=== PATIENT | female | born 1990 | race Caucasian/White ===

== ENCOUNTER 2021-05-27 12:31 | Emergency (ER) | payer SELFPAY ==
[2021-05-27 12:52] VITALS: BP 161/91; PULSE 76; RESP 18; TEMP 37.1; O2SAT 99; BMI 52.7
--- NOTE | 2021-05-27 12:59 | ED_ITS ---
HPI - Fall General: Chief Complaint: Fall Stated Complaint: R should injury Time Seen by Provider: 05/27/21 12:58 History of Present Illness: Patient is a 30-year-old female comes to the ED with right upper extremity injury. Patient says she fell in her apartment accidentally about 3 days ago. She landed on her right arm. Denies any head trauma or loss of consciousness. She is currently complaining of right shoulder pain and right wrist pain. Associated symptoms-after fall: Denies abdominal pain, chest pain, headache(s), hematuria or neck pain Review of Systems Const: Denies: fever(s), chills or fatigue Eyes: Denies: change in vision or eye discomfort ENMT: Denies: throat pain, odynophagia, nasal discharge or nasal congestion Card: Denies: chest pain, palpitations, edema, swelling of feet/ankles, dyspnea on exertion or orthopnea Resp: Denies: dyspnea, productive cough or non-productive cough GI: Denies: abdominal pain, nausea, vomiting, diarrhea, constipation or hematochezia : Denies: flank pain, dysuria or hematuria Musc: Reports: extremity pain (right wrist and right shoulder); Denies: neck pain, back pain or extremity swelling Skin/Breast: Denies: rash or new lesions Neuro: Denies: headache(s), numbness in extremities or weakness in extremities [facility] ED PFSH: Medical History Psychiatric care Surgical History No pertinent past surgical history Social History Smoking and tobacco status: current every day smoker cigarettes Packs smoked per day: 0.15 Years cigarettes smoked: 1 Quit status (tobacco): considering quitting Second hand smoke exposure: Yes Physical Exam Const: COMMON NORMALS: no acute distress, patient oriented x3, healthy appearing and alert GENERAL APPEARANCE: cooperative and comfortable HENMT: COMMON NORMALS: normocephalic HEAD & SCALP: normocephalic MOUTH: Normal oral and palatal mucosa present THROAT: posterior oropharynx normal and uvula midline Neck/C-Spine: COMMON NORMALS: supple GENERAL: Yes normal visual inspection Resp: COMMON NORMALS: normal respiratory effort, No retractions, No use of accessory muscles and clear to auscultation bilaterally AUSCULTATION: clear to auscultation bilaterally Cardio: COMMON NORMALS: regular rate, regular rhythm, S1 normal heart sound present, S2 normal heart sound present, No gallops present (Cardio), No clicks present (Cardio), No murmurs present (Cardio) and Peripheral pulses 2+ througho ut RATE: regular rate RHYTHM: regular rhythm HEART SOUNDS: S1 normal heart sound present and S2 normal heart sound present PERIPHERAL PULSES: Peripheral pulses 2+ throughout GI: COMMON NORMALS: Normal to inspection, nondistended, normoactive bowel sounds present, Soft to palpation, non-tender and no masses PALPATION: Yes Soft to palpation : COMMON NORMALS: Yes no CVA tenderness BLADDER/KIDNEY EXAM: Yes no CVA tenderness Back/Pelvis: COMMON NORMALS: no CVA tenderness Extremity: NARRATIVE EXTREMITY EXAM: Palpable tenderness to the right AC joint region of shoulder. Neurovascular intact distally no other acute findings. Right shoulder range of motion limited due to pain. RIGHT UPPER EXTREMITY: Yes wrist Right wrist: Yes inspection (Normal, no swelling or deformity), Yes palpation (Nontender), Yes ROM (Full range of motion) and Yes neurovascular exam (Intact) Neuro: COMMON NORMALS: patient oriented x3 and moves all extremities SENSORIUM/ORIENTATION: Yes alert Skin: GENERAL SKIN EXAM: dry skin Course Vital Signs: Vital signs: Vital Signs Temperature 98.7 F 05/27/21 12:52 Pulse Rate 76 05/27/21 12:52 Respiratory Rate 18 05/27/21 12:52 Blood Pressure 161/91 05/27/21 12:52 Pulse Oximetry 99 05/27/21 12:52 MDM - Fall Medical Decision Making Patient is a 30-year-old female comes to the ED with right shoulder and right wrist injury from fall. Patient has some right shoulder AC joint tenderness but the rest of exam findings are unremarkable. She is neurovascular intact. X- rays of right shoulder and right wrist show no acute findings. Patient diagnosed with pain in right shoulder was discharged home in a sling. She was told to follow-up with PCP in 5 to 7 days for reevaluation. She was instructed on only wearing the sling for couple days and to remove her right arm from sling to do range of motion exercises multiple times a day. Patient was discharged she understood and agreed with plan. Lab Data Radiology Impressions Shoulder X-Ray 05/27/21 13:07 IMPRESSION: No acute findings. Wrist X-Ray 05/27/21 13:07 IMPRESSION: No acute findings. Discharge Plan Discharge Patient Disposition: Home Clinical Impression: Pain in right shoulder Qualifiers: Chronicity: acute Qualified Code(s): M25.511 - Pain in right shoulder Condition: Stable Prescriptions: New Celebrex 100 mg capsule 100 mg PO BID PRN (Reason: pain) Qty: 20 0RF No Action trazodone 50 mg tablet 100 mg PO .HS PRN (Reason: insomnia) Qty: 60 1RF fluoxetine [Prozac] 20 mg capsule 20 mg PO DAILY Qty: 30 2RF Discharge Orders: Discharge ED (Routine); Ordered 05/27/21 Ordered By: Jun Ames Discharge Diet: Regular Discharge Activity: Increase activity as tolerated Patient Instructions: Shoulder Sprain (ED), Shoulder Pain (ED) Activity Restrictions/Additional Instructions: Follow-up with medical provider as directed. Wear shoulder sling for the next 2 to 3 days to allow for healing. At least 4 times a day take right arm out of sling and do some range of motion exercises to prevent frozen shoulder. take medications as prescribed. Apply cold pack on right shoulder to help with symptoms as well. Return to the ER or your medical provider if condition worsens. Please read and understand discharge instructions. Thank you for choosing [facility] for your healthcare needs today. Please realize this is an emergency room and that we are providing you with a medical screening exam and this may not be complete and all inclusive of all the testing and or work up that you may need to determine your ailment or severity of your illness. It is very important that you follow up as instructed or that you return to the Emergency Department should you have concerns or if your condition changes or worsens in any way. Stand Alone Forms: Work/School Release Coding Level of Care Code ED Medical Photographer for Marcelo Fwmoon Exam Comprehensive
--- NOTE | 2021-05-27 13:07 | XRR_ITS ---
PROCEDURE INFORMATION: Exam: XR Right Shoulder Exam date and time: 05/27/2021 1:07 PM Age: 30 years old Clinical indication: Pain and injury or trauma; Fall; Blunt trauma (contusions or hematomas); Shoulder; Right; Injury date: 05/27/21; Additional info: Fall injury with shoulder pain TECHNIQUE: Imaging protocol: XR Right shoulder. Views: 2 or more views. COMPARISON: No relevant prior studies available. FINDINGS: Bones/joints: Osseous structures are intact. Negative for fracture or dislocation. Soft tissues: Normal. XR/XR shoulder RT min 2V* [id number] IMPRESSION: No acute findings.
--- NOTE | 2021-05-27 13:07 | XRR_ITS ---
PROCEDURE INFORMATION: Exam: XR Right Wrist Exam date and time: 05/27/2021 1:07 PM Age: 30 years old Clinical indication: Pain and injury or trauma; Fall; Blunt trauma (contusions or hematomas); Wrist; Right; Injury date: 05/27/21; Additional info: Fall injury with wrist pain TECHNIQUE: Imaging protocol: XR Right wrist. Views: 3 or more views. COMPARISON: No relevant prior studies available. FINDINGS: Bones/joints: Osseous structures are intact. Negative for fracture. Joint spaces are preserved. Soft tissues: Normal. XR/XR wrist RT min 3V* [id number] IMPRESSION: No acute findings.
[2021-05-27] MEDS: HYDROcodone-acetaminophen 5-325 mg Tablet 1 TAB PO (13:12)
== END 2021-05-27 15:03 | disposition home or self-care (01) ==
PROVIDERS: Emergency Provider Physician Assistant
DX: M25.511 Pain in right shoulder (principal); F17.210 Nicotine dependence, cigarettes, uncomplicated
CPT/HCPCS: 73030; 73110; 99283

== ENCOUNTER 2021-10-13 18:02 | Emergency (ER) | payer SELFPAY ==
[2021-10-13 18:09] VITALS: BP 180/120; PULSE 92; RESP 18; TEMP 36.2; O2SAT 97; BMI 52.7
--- NOTE | 2021-10-13 18:44 | W.ED.ABDPA2 ---
HPI - Abdominal Pain General: Chief Complaint: Abdominal Pain Stated Complaint: abd pain Time Seen by Provider: 10/13/21 18:20 Source: patient Mode of arrival: ambulatory Limitations: no limitations History of Present Illness: Patient is a 31-year-old female who presents to ED today with complaint of upper abdominal pain that has been intermittent over the past month or so. She states pain seems to be worse after eating and lying on her right side. She states pain sometimes does localize to her right upper quadrant and states it was similar to when she had her gallbladder issues . Patient states she is status post cholecystectomy with a biliary stent. This was placed a few years ago. Patient is not having any vomiting. She does feel nauseous. She has not had any changes to her bowel movements. No fevers. No yellowing of her skin or eyes. She denies heavy alcohol use or NSAID use. MD elicited complaint: abdominal pain Onset (ago): month(s) Pain Consistency: intermittent Location: Epigastric, LUQ and RUQ Radiation: none Exacerbating factors: eating and other (lying on R side) Associated Symptoms: Reports nausea; Denies change in bowel habits, chills, constipation, diarrhea, dysuria, fever(s), hematochezia, hematemesis, melena and vomiting Related Data: Patient : No Review of Systems Const: Denies: fever(s), chills, body aches, fatigue or malaise Card: Denies: chest pain Resp: Denies: dyspnea GI: Reports: abdominal pain and nausea; Denies: vomiting, hematemesis, diarrhea, constipation, change in bowel habits, hematochezia or melena : Denies: flank pain or dysuria Musc: Denies: neck pain, back pain, extremity pain or joint pain Skin/Breast: Denies: rash Neuro: Denies: headache(s) PFSH ED PFSH: Medical History Psychiatric care Surgical History No pertinent past surgical history Social History Smoking and tobacco status: current every day smoker cigarettes Packs smoked per day: 0.15 Years cigarettes smoked: 1 Quit status (tobacco): considering quitting Second hand smoke exposure: Yes Physical Exam Const: COMMON NORMALS: no acute distress, patient oriented x3, no limitations and alert GENERAL APPEARANCE: cooperative NUTRITIONAL APPEARANCE: obese morbidly obese ORIENTATION/CONSCIOUSNESS: Yes awake, Yes oriented to person, Yes oriented to place and Yes oriented to time HENMT: COMMON NORMALS: normocephalic and atraumatic HEAD & SCALP: normal to inspection, normocephalic and atraumatic Resp: COMMON NORMALS: normal respiratory effort and clear to auscultation bilaterally AUSCULTATION: clear to auscultation bilaterally Cardio: COMMON NORMALS: regular rate and regular rhythm RATE: regular rate RHYTHM: regular rhythm GI: COMMON NORMALS: Normal to inspection, nondistended, normoactive bowel sounds present, Soft to palpation, No hepatosplenomegaly present and no masses INSPECTION: Yes normal to inspection AUSCULTATION: Yes normoactive bowel sounds PALPATION: Yes Soft to palpation, Yes Tenderness to palpation present (GI) (throughout upper abdomen; non-surgical ), No Guarding due to palpation present (GI), No Rigid due to palpation and Yes No hepatosplenomegaly present : COMMON NORMALS: Yes no CVA tenderness BLADDER/KIDNEY EXAM: Yes no CVA tenderness Back/Pelvis: COMMON NORMALS: no CVA tenderness Extremity: COMMON NORMALS: normal to inspection GENERAL: Yes normal exam except as noted Neuro: BORA COMA SCALE: document GCS findings [place] coma scale eye opening: Spontaneous [place] coma scale verbal response: Orientated [place] coma scale motor response: Obey commands [place] coma scale total score: 15 COMMON NORMALS: patient oriented x3, moves all extremities, no focal motor deficits and no sensory deficits noted SENSORIUM/ORIENTATION: Yes alert, Yes oriented to person, Yes oriented to place and Yes oriented to time Skin: COMMON NORMALS: no rashes or lesions noted GENERAL SKIN EXAM: no rashes or lesions noted Course Vital Signs: Vital signs: Vital Signs Temperature 97.1 F L 10/13/21 18:09 Pulse Rate 68 10/13/21 20:32 Respiratory Rate 18 10/13/21 19:14 Blood Pressure 135/73 10/13/21 20:32 Pulse Oximetry 100 10/13/21 20:32 MDM - Abdominal Pain Medical Decision Making Patient appears in no acute distress. Her abdomen is nonsurgical. Labs overall are unremarkable. UA contaminated-she has no symptoms of a UTI and I think this would be unlikely given history. She has normal LFTs and a normal bilirubin. At this point I would have a very low suspicion for any type of biliary stent obstruction or migration based on labs. Symptoms of been present intermittently for a month. She states she feels better after IV pain/nausea medications and a GI cocktail. We will have her follow-up with GI/general surgery for further evaluation of her upper abdominal pains. Return to ED precautions given. Lab Data : 10/13/21 19:02 10/13/21 19:02 Labs/Radiology: Laboratory Results WBC 11.9 10^3/uL (4.0-10.0) H 10/13/21 19:02 RBC 4.74 10^6/uL (4.1-5.3) 10/13/21 19:02 Hgb 14.2 g/dL (11.5-15.3) 10/13/21 19:02 Hct 45.3 % (37.0-47.0) 10/13/21 19:02 MCV 95.6 fl (81-99) 10/13/21 19:02 MCH 30.0 pg (28.0-34.0) 10/13/21 19:02 MCHC 31.3 g/dL (30.0-36.0) 10/13/21 19:02 RDW 12.6 % (12.1-15.1) 10/13/21 19:02 Plt Count 312 10^3/cmm (130-400) 10/13/21 19:02 MPV 11.7 fL (7.4-10.4) H 10/13/21 19:02 Neut % (Auto) 60.0 % 10/13/21 19:02 Lymph % (Auto) 28.4 % 10/13/21 19:02 [facility] % (Auto) 7.5 % 10/13/21 19:02 Eos % (Auto) 3.3 % 10/13/21 19:02 Baso % (Auto) 0.5 % 10/13/21 19:02 Neut # (Auto) 7.18 10^3/uL (1.8-7.7) 10/13/21 19:02 Lymph # (Auto) 3.4 10^3/uL (0.8-4.8) 10/13/21 19:02 [facility] # (Auto) 0.9 10^3/uL (0.2-0.9) 10/13/21 19:02 Eos # (Auto) 0.4 10^3/uL (0.0-0.8) 10/13/21 19:02 Baso # (Auto) 0.1 10^3/uL (0.0-0.1) 10/13/21 19:02 Nucleated RBC % (auto) 0 % 10/13/21 19:02 Nucleated RBCs # 0.0 /100WBC 10/13/21 19:02 Sodium 135 mmol/L (136-145) L 10/13/21 19:02 Potassium 4.3 mmol/L (3.5-5.1) 10/13/21 19:02 Chloride 102 mmol/L (98-107) 10/13/21 19:02 Carbon Dioxide 20 mmol/L (22-29) L 10/13/21 19:02 Anion Gap 17.3 (5-19) 10/13/21 19:02 BUN 9 mg/dL (6-20) 10/13/21 19:02 Creatinine 0.6 mg/dL (0.5-0.9) 10/13/21 19:02 GFR Calculation 118.2 mL/min (90-130) 10/13/21 19:02 Glucose 92 mg/dL (65-115) 10/13/21 19:02 Calculated Osmolality 278 mOsm/kg (285-295) L 10/13/21 19:02 Calcium 9.5 mg/dL (8.5-10.5) 10/13/21 19:02 Total Bilirubin 0.5 mg/dL (0.15-1.2) 10/13/21 19:02 AST 25 U/L (0-32) 10/13/21 19:02 ALT 29 U/L (0-33) 10/13/21 19:02 Alkaline Phosphatase 72 IU/L (35-105) 10/13/21 19:02 Total Protein 8.1 g/dL (6.6-8.7) 10/13/21 19:02 Albumin 4.5 g/dL (3.5-5.2) 10/13/21 19:02 Globulin 3.6 g/dL (1.3-4.6) 10/13/21 19:02 Lipase 21 U/L (13-60) 10/13/21 19:02 HCG, Qual Negative (Negative) 10/13/21 19:02 Urine Color Yellow (Yellow) 10/13/21 19:56 Urine Appearance Clear (CLEAR) 10/13/21 19:56 Urine pH 5 (5-7) 10/13/21 19:56 Ur Specific [place] 1.030 (1.005-1.030) 10/13/21 19:56 Urine Protein Neg (Negative) 10/13/21 19:56 Urine Glucose (UA) Norm (Normal) 10/13/21 19:56 Urine Ketones 1+ (Negative) H 10/13/21 19:56 Urine Blood 2+ (Negative) H 10/13/21 19:56 Urine Nitrate Negative (Negative) 10/13/21 19:56 Urine Bilirubin 1+ (Negative) H 10/13/21 19:56 Urine Urobilinogen Norm mg/dL (Negative) 10/13/21 19:56 Ur Leukocyte Esterase Trace (Negative) H 10/13/21 19:56 Urine RBC 5-10 /hpf (0-2) H 10/13/21 19:56 Urine WBC 0-4 /hpf (0-5) H 10/13/21 19:56 Ur Squamous Epith Cells 5-10 /hpf (0-5) H 10/13/21 19:56 Amorphous Sediment Not Reportable 10/13/21 19:56 Urine Bacteria Trace /hpf (NONE) 10/13/21 19:56 Urine Mucus 2+ /hpf 10/13/21 19:56 Discharge Plan Discharge Patient Disposition: Home Clinical Impression: Intermittent upper abdominal pain Condition: Stable Prescriptions: No Action trazodone 50 mg tablet 100 mg PO .HS PRN (Reason: insomnia) Qty: 60 1RF fluoxetine [Prozac] 20 mg capsule 20 mg PO DAILY Qty: 30 2RF Celebrex 100 mg capsule 100 mg PO BID PRN (Reason: pain) Qty: 20 0RF Discharge Orders: Discharge ED (Routine); Ordered 10/13/21 Ordered By: Emily Barkley Patient Instructions: Abdominal Pain (ED) Activity Restrictions/Additional Instructions: As we discussed begin taking a medication such as Pepcid/Zantac as well as a medication such as Pantoprazole/Omeprazole (as we discussed these are available OTC) and discuss whether they are helping when you follow up with GI/general surgery. You need to return to the emergency department for worsening or severe pain, uncontrollable pain, repetitive episodes of vomiting or diarrhea, fevers, yellowing of your skin or eyes, or any other concerns you may have. I hope you begin to feel better soon. Coding Level of Care Code ED Brushing Machine Operator for Marcelo Fwd Exam Comprehensive
[2021-10-13 19:14] VITALS: RESP 18
[2021-10-13 19:14] LABS: Basophils # 0.1 10^3/uL (0.0-0.1); Basophils % 0.5 %; Eosinophils # 0.4 10^3/uL (0.0-0.8); Eosinophils % 3.3 %; Hematocrit 45.3 % (37.0-47.0); Hemoglobin 14.2 g/dL (11.5-15.3); Lymphocytes # 3.4 10^3/uL (0.8-4.8); Lymphocytes % 28.4 %; Mean Corpuscular HGB Conc 31.3 g/dL (30.0-36.0); Mean Corpuscular Volume 95.6 fl (81-99); Mean Platelet Volume 11.7 fL (7.4-10.4); Monocytes # 0.9 10^3/uL (0.2-0.9); Monocytes % 7.5 %; Neutrophils # 7.18 10^3/uL (1.8-7.7); Nucleated Red Blood Cells % 0 %; Platelet Count 312 10^3/cmm (130-400); Red Blood Count 4.74 10^6/uL (4.1-5.3); Red Cell Distribution Width 12.6 % (12.1-15.1); White Blood Count 11.9 10^3/uL (4.0-10.0)
[2021-10-13] MEDS: sodium chloride 0.9% 1,000 ML 999 ML IV (19:14)
[2021-10-13] MEDS: morphine 4 mg/mL SDV 1 mL IVP (19:14)
[2021-10-13] MEDS: ondansetron 2 mg/ML SDV 2 mL 4 MG IVP (19:14)
[2021-10-13] MEDS: lidocaine 2% viscous 15 ML, aluminum-mag hydrox-simethicon 30 ML, sucralfate oral liq 1 GM PO (19:15)
[2021-10-13 19:25] LABS: HCG, Serum Qual Negative (Negative)
[2021-10-13 19:35] LABS: Alanine Aminotransferase 29 U/L (0-33); Albumin Level 4.5 g/dL (3.5-5.2); Alkaline Phosphatase 72 IU/L (35-105); Blood Urea Nitrogen 9 mg/dL (6-20); Calcium 9.5 mg/dL (8.5-10.5); Carbon Dioxide 20 mmol/L (22-29); Chloride 102 mmol/L (98-107); Globulin 3.6 g/dL (1.3-4.6); Glomerular Filtration Rate 118.2 mL/min (90-130); Glucose 92 mg/dL (65-115); Lipase 21 U/L (13-60); Osmolality Calculated 278 mOsm/kg (285-295); Sodium 135 mmol/L (136-145); Total Bilirubin 0.5 mg/dL (0.15-1.2); Total Protein 8.1 g/dL (6.6-8.7)
[2021-10-13 19:39] LABS: Anion Gap 17.3 (5-19); Potassium 4.3 mmol/L (3.5-5.1)
[2021-10-13 19:40] LABS: Aspartate Amino Transferase 25 U/L (0-32)
[2021-10-13 20:32] VITALS: BP 135/73; PULSE 68; O2SAT 100
[2021-10-13 20:44] LABS: Add Urine Microscopic? YES; Bilirubin Urine 1+ (Negative); Blood Urine 2+ (Negative); Glucose Urine UA Norm (Normal); Ketones Urine 1+ (Negative); Leukocyte Esterase Urine Trace (Negative); Nitrate Urine Negative (Negative); Protein Urine Neg (Negative); Urine Appearance Clear (CLEAR); Urine Color Yellow (Yellow); Urobilinogen Urine Norm (Negative); pH Urine 5 (5-7)
[2021-10-13 20:45] LABS: Add Urine Culture? No; Bacteria Urine TRACE /hpf; Mucus Urine 2+ /hpf; WBC Urine 0-4 /hpf (0-5)
[2021-10-13 21:36] VITALS: BP 116/74; PULSE 74; RESP 20; O2SAT 98
--- NOTE | 2021-10-14 07:44 | DCPLANNER ---
Addendum entered by Tata Goode 11/12/21 16:16: Patient had a follow up appointment scheduled with general surgery - patient did not attend appointment. Addendum entered by Tata Goode 10/16/21 15:53: Patient has a follow up appointment scheduled for Thursday, October 23, 2021 at 11:[address] Rubin at general surgery. Clinic will call patient with appointment information. Original Note: collections manager had message to schedule a follow up appointment for patient with general surgery. collections manager sent patients information to the front office staff at general surgery. Patients information will be printed and reviewed. Clinic will call patient with appointment information.
== END 2021-10-13 21:37 | disposition home or self-care (01) ==
PROVIDERS: Emergency Medicine; Emergency Provider Physician Assistant
DX: R10.10 Upper abdominal pain, unspecified (principal); F17.210 Nicotine dependence, cigarettes, uncomplicated
CPT/HCPCS: 36415; 80053; 81001; 83690; 84703; 85025; 96361; 96374; 96375; 99284; J2270; J2405; J7030

== ENCOUNTER 2023-05-10 14:02 | Emergency (ER) | payer SELFPAY ==
[2023-05-10 14:06] VITALS: BP 166/122; PULSE 108; RESP 16; TEMP 36.6; O2SAT 98; BMI 55.0
--- NOTE | 2023-05-10 14:41 | ED_ITS ---
HPI - Neck Pain/Injury 2 General: Chief Complaint: Back Pain/Injury Stated Complaint: neck pain Time Seen by Provider: 05/10/23 14:17 Source: patient Mode of arrival: ambulatory Limitations: no limitations History of Present Illness: Patient is a 32-year-old female who presents to ED today with a complaint of right-sided neck and right posterior shoulder pain that she has had over the past 2 to 3 days. She arrives with appears to be right-sided torticollis. She states pain is made worse with certain range of motion's of the neck as well as the right shoulder. She describes a burning sensation across to her shoulder blades. MD complaint: neck pain and other (R shoulder pain) Onset (ago): day(s) Place: home Radiation: right lateral and right shoulder Severity: moderate Quality: burning and sharp Duration: intermittent Relieving factors: immobilization Exacerbating factors: movement of extremity and movement of neck Associated symptoms: Reports no associated symptoms; Denies difficulty walking, dizziness or headache(s) Treatments prior to arrival: none Review of Systems 2 Const: Denies: fever(s), chills, body aches, fatigue or malaise Eyes: Denies: change in vision, blurry vision, floaters or seeing flashes ENMT: Denies: ear or mastoid pain Card: Denies: chest pain Resp: Denies: dyspnea Musc: Reports: neck pain, joint pain (R shoulder) and limited range of motion; Denies: back pain, extremity pain, extremity swelling, joint swelling, joint redness, joint warmth, joint stiffness, muscle cramps, muscle weakness, decrease in muscle mass, loss of height or deformity Skin/Breast: Denies: rash Neuro: Denies: headache(s), numbness in extremities, weakness in extremities, sensory changes, lack of coordination, difficulty walking, dizziness or Slurred speech present PFSH ED 2 PFSH: Surgical History No pertinent past surgical history Social History Smoking and tobacco/nicotine status: current every day tobacco/nicotine user cigarettes Packs smoked per day: 0.15 Years cigarettes smoked: 1 Quit status (tobacco/nicotine): considering quitting Second hand smoke exposure: Yes Physical Exam 2 Const: COMMON NORMALS: no acute distress, patient oriented x3, no limitations and alert GENERAL APPEARANCE: cooperative NUTRITIONAL APPEARANCE: obese morbidly obese (BMI of 55.1) ORIENTATION/CONSCIOUSNESS: Yes awake, Yes oriented to person, Yes oriented to place and Yes oriented to time HENMT: COMMON NORMALS: normocephalic and atraumatic HEAD & SCALP: normal to inspection, normocephalic and atraumatic FACE & SINUS: normal facial exam and face symmetric Eye: GENERAL EYE: appearance normal, both eyes and all related structures and normal light reflex DIRECT OPHTHALMOSCOPY: Yes normal light reflex Neck/C-Spine: COMMON NORMALS: no lymphadenopathy, supple, no meningeal signs, no JVD and No carotid bruits GENERAL: Yes torticollis CERVICAL SPINE: No Cervical spine tenderness, No step off deformity and Yes Trapezius muscle tenderness OTHER: pt with TTP overlying her R trapezius muscle; pain is made worse with lateral flexion to the R as well as rotation to the R Resp: COMMON NORMALS: normal respiratory effort Cardio: COMMON NORMALS: no JVD Back/Pelvis: COMMON NORMALS: thoracic and lumbar spine normal to inspection and no thoracic nor lumbar tenderness BACK IMAGE (FEMALE): 1. TTP; made worse with ROM of shoulder and lateral/rotational movements of neck Extremity: COMMON NORMALS: normal to inspection, capillary refill normal, no joint enlargement and no clubbing, cyanosis or edema GENERAL: Yes normal exam except as noted Neuro: COMMON NORMALS: patient oriented x3, moves all extremities, no focal motor deficits and no sensory deficits noted SENSORIUM/ORIENTATION: Yes alert, Yes oriented to person, Yes oriented to place and Yes oriented to time MENINGEAL SIGNS: Yes no meningeal signs MOTOR EXAM: 5/5 motor strength present throughout Skin: COMMON NORMALS: no rashes or lesions noted GENERAL SKIN EXAM: no rashes or lesions noted Course 2 Vital Signs: Vital signs: Vital Signs Temperature 97.8 F 05/10/23 14:57 Pulse Rate 108 H 05/10/23 14:57 Respiratory Rate 16 05/10/23 14:57 Blood Pressure 166/122 05/10/23 14:57 Pulse Oximetry 98 05/10/23 14:57 Oxygen Delivery Me thod Room Air 05/10/23 14:06 MDM - Neck Pain/Injury Medical Decision Making Patient's pain is directly reproducible with palpation overlying the right trapezius musculature. She will be treated with anti-inflammatories, steroids, muscle relaxers. Recommend ice/heat at home. Recommend follow-up with primary care in 1 to 2 weeks if symptoms do not improve. Return ED precautions given. No radiology studies performed this visit Discharge Plan Discharge Patient Disposition: Home Clinical Impression: Strain of right trapezius muscle Qualifiers: Encounter type: initial encounter Qualified Code(s): S46.811A - Strain of other muscles, fascia and tendons at shoulder and upper arm level, right arm, initial encounter Condition: Stable Prescriptions: New methocarbamol 500 mg tablet 1,000 mg PO Q8H Qty: 30 0RF prednisone 10 mg tablet 10 mg PO DAILY 10 Days Qty: 20 0RF Rx Instructions: Take 5 tabs on day 1-2, 4 tabs on day 3, 3 tabs on day 4, 2 tabs on day 5, and 1 tab on day 6 ibuprofen 800 mg tablet 800 mg PO Q8H PRN (Reason: pain) Qty: 20 0RF Discontinued celecoxib [Celebrex] 100 mg capsule 100 mg PO BID PRN (Reason: pain) Qty: 20 0RF No Action trazodone 50 mg tablet 100 mg PO .HS PRN (Reason: insomnia) Qty: 60 1RF fluoxetine [Prozac] 20 mg capsule 20 mg PO DAILY Qty: 30 2RF Discharge Orders: Discharge ED (Routine); Ordered 05/10/23 Ordered By: Emily Barkley Stand Alone Forms: Work/School Release Coding Level of Care Code ED Invoice Machine Operator for Marcelo Corral
[2023-05-10] MEDS: dexamethasone 10 mg/mL INJ IM (14:52)
[2023-05-10] MEDS: ketorolac 60 mg/2 mL INJ IM (14:53)
[2023-05-10 14:57] VITALS: BP 166/122; PULSE 108; RESP 16; TEMP 36.6; O2SAT 98
== END 2023-05-10 15:16 | disposition home or self-care (01) ==
PROVIDERS: Emergency Provider Physician Assistant
DX: S46.811A Strain of other muscles, fascia and tendons at shoulder and upper arm level, right arm, initial encounter (principal); F17.210 Nicotine dependence, cigarettes, uncomplicated; X58.XXXA Exposure to other specified factors, initial encounter
CPT/HCPCS: 96372; 99284; J1100; J1885

== ENCOUNTER 2023-07-26 13:35 | Emergency (ER) | payer SELFPAY ==
[2023-07-26 13:42] VITALS: BP 151/103; PULSE 82; RESP 17; TEMP 36.6; O2SAT 98
--- NOTE | 2023-07-26 14:49 | ED_ITS ---
HPI - Dental/Oral General: Chief complaint: Dental/Oral Stated complaint: Jaw pain Time Seen by Provider: 07/26/23 14:47 History of Present Illness: Patient comes in today with complaints of right lower jaw pain. Patient reports waxing and waning of the jaw pain. Last 2 days the pain has been unbearable. Patient reports a bad tooth in that area of pain. Review of Systems General: Reports: 10 or more systems reviewed and unremarkable except in HPI and below PFSH ED PFSH: Surgical History No pertinent past surgical history Social History Smoking and tobacco/nicotine status: current every day tobacco/nicotine user cigarettes Packs smoked per day: 0.15 Years cigarettes smoked: 1 Quit status (tobacco/nicotine): considering quitting Second hand smoke exposure: Yes Physical Exam Const: COMMON NORMALS: alert HENMT: TEETH & GINGIVA: Yes fair dentition Neck/C-Spine: COMMON NORMALS: full ROM Resp: COMMON NORMALS: normal respiratory effort Cardio: COMMON NORMALS: regular rate RATE: regular rate Extremity: COMMON NORMALS: normal to inspection Neuro: SENSORIUM/ORIENTATION: Yes alert Skin: COMMON NORMALS: turgor normal GENERAL SKIN EXAM: turgor normal Course Vital Signs: Vital signs: Vital Signs Temperature 97.8 F 07/26/23 13:42 Pulse Rate 82 07/26/23 13:42 Respiratory Rate 17 07/26/23 13:42 Blood Pressure 151/103 07/26/23 13:42 Pulse Oximetry 98 07/26/23 13:42 Oxygen Delivery Me thod Room Air 07/26/23 13:42 [facility] - Dental/Oral Medical Decision Making Patient presents today with complaints of jaw pain. On exam patient has a significantly decayed tooth to the right lower jaw. Surrounding gingiva is erythematous and swollen. Differential diagnosis includes but not limited to dental abscess, dental caries, tooth ache. Reviewed exam with patient with recommendation for treatment with antibiotic and medication for pain. Patient reported understanding agreed to plan. No radiology studies performed this visit Discharge Plan Discharge Patient Disposition: Home Clinical Impression: Dental abscess, Dental caries, Toothache Condition: Stable Prescriptions: New amoxicillin-pot clavulanate 875-125 mg tablet 1 tab PO BID Qty: 14 0RF hydrocodone-acetaminophen 5-325 mg tablet 1 tab PO Q6H PRN (Reason: pain) Qty: 6 0RF No Action trazodone 50 mg tablet 100 mg PO .HS PRN (Reason: insomnia) Qty: 60 1RF fluoxetine [Prozac] 20 mg capsule 20 mg PO DAILY Qty: 30 2RF methocarbamol 500 mg tablet 1,000 mg PO Q8H Qty: 30 0RF ibuprofen 800 mg tablet 800 mg PO Q8H PRN (Reason: pain) Qty: 20 0RF Discharge Orders: Discharge ED (Routine); Ordered 07/26/23 Ordered By: Addison Clark Discharge Diet: Usual diet Discharge Activity: Increase activity as tolerated Patient Instructions: Toothache (ED) Activity Restrictions/Additional Instructions: Take antibiotics as directed. Use acetaminophen and ibuprofen to help control pain. Use hydrocodone for severe pain. Follow-up with dentist for definitive care. Stand Alone Forms: Work/School Release Coding Level of Care Code ED Bookbinder Chief for Marcelo Corral
== END 2023-07-26 15:01 | disposition home or self-care (01) ==
PROVIDERS: Emergency Provider Nurse Practitioner Family
DX: K04.7 Periapical abscess without sinus (principal); K02.9 Dental caries, unspecified; F17.210 Nicotine dependence, cigarettes, uncomplicated
CPT/HCPCS: 99283

== ENCOUNTER 2023-10-04 21:34 | Emergency (ER) | payer SELFPAY ==
[2023-10-04 22:10] VITALS: BP 163/100; PULSE 96; RESP 17; TEMP 37.2; O2SAT 100; BMI 54.6
--- NOTE | 2023-10-04 23:06 | ED_ITS ---
HPI - Dental/Oral General: Chief complaint: Dental/Oral Stated complaint: Mouth Pain Time Seen by Provider: 10/04/23 22:21 History of Present Illness: Patient comes in today for complaints of right lower dental pain. Patient has 2 carious teeth to the second and third molar of the right lower jaw. Some mild swelling and redness is noted to the gingiva. Patient reports pain to the transventricular joint. Review of Systems General: Reports: 10 or more systems reviewed and unremarkable except in HPI and below PFSH ED PFSH: Surgical History No pertinent past surgical history Social History Smoking and tobacco/nicotine status: current every day tobacco/nicotine user cigarettes Packs smoked per day: 0.15 Years cigarettes smoked: 1 Quit status (tobacco/nicotine): considering quitting Second hand smoke exposure: Yes Physical Exam Const: COMMON NORMALS: alert HENMT: HEAD & SCALP: normal to inspection FACE & SINUS: normal facial exam TEETH & GINGIVA: Yes fair dentition and Yes other (2 carious molars are noted to the right lower dentition) Neck/C-Spine: COMMON NORMALS: full ROM Resp: COMMON NORMALS: normal respiratory effort Cardio: COMMON NORMALS: regular rate RATE: regular rate Back/Pelvis: COMMON NORMALS: thoracic and lumbar spine normal to inspection Extremity: COMMON NORMALS: normal to inspection Neuro: SENSORIUM/ORIENTATION: Yes alert Skin: COMMON NORMALS: turgor normal GENERAL SKIN EXAM: turgor normal Course Vital Signs: Vital signs: Vital Signs Temperature 99 F 10/04/23 22:10 Pulse Rate 96 10/04/23 22:10 Respiratory Rate 17 10/04/23 22:10 Blood Pressure 163/100 10/04/23 22:10 Pulse Oximetry 100 10/04/23 22:10 Oxygen Delivery Me thod Room Air 10/04/23 22:10 MDM - Dental/Oral Medical Decision Making 33-year-old male patient comes in today with complaints of dental pain. On exam patient has some carious teeth to the right lower molars #2 and 3. Some mild erythema is noted. No significant facial swelling is noted. No obvious abscesses noted. Differential diagnosis periapical abscess, dental pain, retropharyngeal abscess. No sign of severe illness or injury is noted. Reviewed exam with patient with recommendation for treatment and follow-up. Patient was given clindamycin and Toradol to help with pain. Patient will follow-up otherwise with primary care for further instructions. No radiology studies performed this visit Discharge Plan Discharge Patient Disposition: Home Clinical Impression: Toothache Condition: Stable Prescriptions: New ketorolac 10 mg tablet 10 mg PO Q6H PRN (Reason: pain) 3 Days Qty: 10 0RF Continued clindamycin HCl 300 mg capsule 300 mg PO TID 7 Days Qty: 21 0RF Discharge Orders: Discharge ED (Routine); Ordered 10/04/23 Ordered By: Addison Clark Discharge Diet: Usual diet Discharge Activity: Increase activity as tolerated Patient Instructions: Toothache (ED) Activity Restrictions/Additional Instructions: Follow-up with dentist for definitive care. Return to ER for new concerns. Coding Level of Care Code ED Retirement Administrator for Marcelo Corral
[2023-10-04] MEDS: ketorolac 10 mg Tablet PO (23:17)
[2023-10-04] MEDS: clindamycin 150 mg Capsule 300 MG PO (23:18)
[2023-10-04] MEDS: HYDROcodone-acetaminophen 7.5-325 mg Tablet 1 TAB PO (23:18)
[2023-10-04 23:21] VITALS: BP 175/109; PULSE 95; RESP 16; O2SAT 99
== END 2023-10-04 23:24 | disposition home or self-care (01) ==
PROVIDERS: Emergency Provider Nurse Practitioner Family
DX: K02.9 Dental caries, unspecified (principal); F17.210 Nicotine dependence, cigarettes, uncomplicated
CPT/HCPCS: 99283

== ENCOUNTER 2023-10-17 21:36 | Emergency (ER) | payer OTHER, SELFPAY ==
[2023-10-17 21:42] VITALS: BP 148/102; PULSE 109; RESP 18; TEMP 36.7; O2SAT 98; BMI 54.6
--- NOTE | 2023-10-17 21:55 | ED_ITS ---
HPI - Extremity Injury (Lower) General: Chief Complaint: Extremity Injury, Lower Stated Complaint: injured R ankle Time Seen by Provider: 10/17/23 21:37 Source: patient Mode of arrival: wheelchair Limitations: no limitations History of Present Illness: Patient is a 33-year-old female presents to ED today for evaluation of a right ankle injury that she sustained just prior to arrival after she was walking down a step and accidentally rolled the ankle. She states she is not able to bear much weight secondary to pain. She has no other injuries at this time. complaint: ankle injury Onset (ago): hour(s) Injury: Right: ankle Place: work Severity: moderate Relieving factors: immobilization Exacerbating factors: weight bearing, movement and palpation Context: walking Associated symptoms: Reports inability to bear weight Other symptoms: none Review of Systems Musc: Reports: joint pain (R ankle) and joint swelling (R ankle) Neuro: Denies: numbness in extremities or sensory changes PFSH ED PFSH: Surgical History No pertinent past surgical history Social History Smoking and tobacco/nicotine status: current every day tobacco/nicotine user cigarettes Packs smoked per day: 0.15 Years cigarettes smoked: 1 Quit status (tobacco/nicotine): considering quitting Second hand smoke exposure: Yes Physical Exam Const: COMMON NORMALS: no acute distress, patient oriented x3, no limitations, alert and well nourished GENERAL APPEARANCE: cooperative NUTRITIONAL APPEARANCE: obese morbidly obese (BMI 54.7) Extremity: COMMON NORMALS: capillary refill normal and no calf tenderness GENERAL: Yes normal exam except as noted RIGHT LOWER EXTREMITY: Yes foot & digits (TTP medial and lateral R ankle) Right ankle: Yes ROM (limited secondary to pain) and Yes neurovascular exam (normal) Neuro: COMMON NORMALS: patient oriented x3 SENSORIUM/ORIENTATION: Yes alert Course Vital Signs: Vital signs: Vital Signs Temperature 98.1 F 10/17/23 21:42 Pulse Rate 86 10/17/23 22:15 Respiratory Rate 16 10/17/23 22:15 Blood Pressure 147/98 10/17/23 22:15 Pulse Oximetry 100 10/17/23 22:15 Oxygen Delivery Me thod Room Air 07/27/24 22:15 MDM - Extremity Injury (Lower) Medical Decision Making XR unremarkable. Will MADELIN wrap/give crutches. RICE therapy discussed. Can follow up with PCP in 1-2 weeks for cnotinued pain. XR interpretation done by ED provider, pending radiology final review ED provider radiology interpretation(s): XR interpretation done by ED provider, pending radiology final review ED provider radiology interpretation(s): no acute fractures noted Discharge Plan Discharge Patient Disposition: Home Clinical Impression: Right ankle sprain Qualifiers: Encounter type: initial encounter Involved ligament of ankle: unspecified ligament Qualified Code(s): S93.401A - Sprain of unspecified ligament of right ankle, initial encounter Condition: Stable Prescriptions: No Action clindamycin HCl 300 mg capsule 300 mg PO TID 7 Days Qty: 21 0RF Discharge Orders: Discharge ED (Routine); Ordered 10/17/23 Ordered By: Emily Barkley Patient Instructions: Ankle Sprain (DC), RICE Therapy Coding Level of Care Code ED Chalk Machine Operator for Marcelo Corral
[2023-10-17 22:15] VITALS: BP 147/98; PULSE 86; RESP 16; O2SAT 100
--- NOTE | 2023-10-17 22:22 | XRR_ITS ---
PROCEDURE INFORMATION: Exam: XR Right Ankle Exam date and time: 10/17/2023 10:30 PM Age: 33 years old Clinical indication: Injury or trauma; Sprain or strain; Right; Patient HX: Patient stepped off a curb wrong and felt pop in ankle. C/O pain. TECHNIQUE: Imaging protocol: Radiologic exam of the right ankle. Views: 3 or more views. COMPARISON: No relevant prior studies available. FINDINGS: Bones/joints: No acute fractures or subluxations. The ankle mortise is intact. Soft tissues: Soft tissue swelling of the visualized lower extremity. No radiopaque foreign bodies. XR/XR ankle RT min 3V* [id number] IMPRESSION: No acute fractures or subluxations.
[2023-10-17] MEDS: acetaminophen 500 mg Tablet 1000 MG PO (23:17)
[2023-10-17 23:18] VITALS: BP 147/98; PULSE 86; RESP 16; TEMP 36.7; O2SAT 100
== END 2023-10-17 23:26 | disposition home or self-care (01) ==
PROVIDERS: Emergency Provider Physician Assistant
DX: S93.401A Sprain of unspecified ligament of right ankle, initial encounter (principal); F17.210 Nicotine dependence, cigarettes, uncomplicated; X50.1XXA Overexertion from prolonged static or awkward postures, initial encounter
CPT/HCPCS: 73610; 99283